=== PATIENT | female | born 1995 ===

== ENCOUNTER 2021-02-20 18:44 | Inpatient (IN) | payer BC ==
[2021-02-20] MEDS ORDERED: Terbutaline 1 MG/ML SDV SUBCUT PRN (19:20)
[2021-02-20] MEDS ORDERED: Sodium Chloride 0.9% 20 ML SDV IV PRN (19:22)
[2021-02-20] MEDS ORDERED: Misoprostol 200 MCG Tab PO PRN (19:22)
[2021-02-20] MEDS ORDERED: Sodium Chloride 0.9% 2.5 ML Syringe FLUSH PRN (19:22)
[2021-02-20] MEDS ORDERED: Lidocaine 1% 50 ML MDV INJECT PRN (19:22)
[2021-02-20] MEDS ORDERED: Sodium Chloride 0.9% 10 ML Syringe FLUSH PRN (19:22)
[2021-02-20] MEDS ORDERED: Carboprost Tromethamine 250 MCG/1 ML Amp IM PRN (19:22)
[2021-02-20] MEDS ORDERED: Methylergonovine 0.2 MG/1 ML Amp IM PRN (19:22)
[2021-02-20] MEDS ORDERED: Butorphanol 1 MG/ML SDV IVPUSH PRN (19:22)
[2021-02-20] MEDS ORDERED: Water For Irrigation,Sterile 1,000 ML Container IRR PRN (19:22)
[2021-02-20] MEDS ORDERED: Ondansetron 4 MG/2 ML SDV IVPUSH PRN (19:22)
[2021-02-20] MEDS ORDERED: Tranexamic Acid 1,000 MG in Sodium Chloride 0.9% 100 ML IV PRN (19:22)
[2021-02-20] MEDS ORDERED: Oxytocin/0.9 % Sodium Chloride 30 UNIT/500 ML BAG IV SCH ×2 (19:30)
[2021-02-20] MEDS: Misoprostol 25 MCG (1/4 of 100 MCG) Tab VAG PRN (20:55)
[2021-02-21] MEDS: Misoprostol 25 MCG (1/4 of 100 MCG) Tab VAG PRN (01:19)
[2021-02-21] MEDS: Lactated Ringers 1,000 ML IV SCH ×3 (06:10→10:25)
[2021-02-21] MEDS ORDERED: Ropivacaine HCl/PF 200 ML ONE (08:07)
--- NOTE | 2021-02-21 08:25 | PCM.PREANE ---
Preanesthetic Assessment - Anesthesia/Transfusion/Family Hx Anesthesia History: Prior Anesthesia Without Reaction Transfusion History: No Prior Transfusion(s) - Review of Systems General: No Symptoms Pulmonary: No Symptoms Cardiovascular: No Symptoms Gastrointestinal: No Symptoms Neurological: No Symptoms Other: Reports: None - Physical Assessment NPO Status Date: 02/21/21 NPO Status Time: 00:00 Height: 5 ft 4 in Weight: 199 lb ASA Class: 2 Mental Status: Alert & Oriented x3 Airway Class: Mallampati = 2 Dentition: Reports: Normal Dentition Thyro-Mental Finger Breadths: 3 Mouth Opening Finger Breadths: 3 ROM/Head Extension: Full Lungs: Clear to Auscultation, Normal Respiratory Effort Cardiovascular: Regular Rate, Regular Rhythm - Lab Values: Laboratory Last Values WBC 15.74 K/uL (4.0-11.0) H 02/20/21 20:25 RBC 4.20 M/uL (4.30-5.90) L 02/20/21 20:25 Hgb 13.1 g/dL (12.0-16.0) 02/20/21 20:25 Hct 38.9 % (36.0-46.0) 02/20/21 20:25 MCV 92.6 fL (80.0-98.0) 02/20/21 20:25 MCH 31.2 pg (27.0-32.0) 02/20/21 20:25 MCHC 33.7 g/dL (31.0-37.0) 02/20/21 20:25 RDW Std Deviation 44.3 fl (28.0-62.0) 02/20/21 20:25 RDW Coeff of Kat[place] 13 % (11.0-15.0) 02/20/21 20:25 Plt Count 322 K/uL (150-400) 02/20/21 20:25 MPV 12.20 fL (7.40-12.00) H 02/20/21 20:25 Nucleated RBC % 0.0 /100WBC 02/20/21 20:25 Nucleated RBCs # 0 K/uL 02/20/21 20:25 Blood Type O POSITIVE 02/20/21 20:25 Antibody Screen NEGATIVE 02/20/21 20:25 - Allergies Allergies/Adverse Reactions: Allergies Allergy/AdvReac Type Severity Reaction Status Date / Time latex Allergy Swelling Verified 02/20/21 19:16 orange Allergy Blisters Verified 02/20/21 21:40 pumpkin Allergy Hives Verified 02/20/21 21:40 - Acknowledgements Anesthesia Type Planned: Epidural Pt an Appropriate Candidate for the Planned Anesthesia: Yes Alternatives and Risks of Anesthesia Discussed w Pt/Guardian: Yes Pt/Guardian Understands and Agrees with Anesthesia Plan: Yes PreAnesthesia Questionnaire HEENT History: Reports: Impaired Vision Genitourinary History: Reports: Renal Calculus 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: Musculoskeletal History: Reports: Other (See Below) Other Musculoskeletal History: heel fracture; bilateral growth plate fractures Psychiatric History: Reports: Other (See Below) Other Psychiatric History: blues - Past Surgical History HEENT Surgical History: Reports: Oral Surgery Female Surgical History: Reports: None Musculoskeletal Surgical History: Reports: None - SUBSTANCE USE Tobacco Use Status *Q: Never Tobacco User Recreational Drug Use History: No - HOME MEDS Home Medications: Home Meds Acetaminophen [Tylenol Extra Strength] 1 - 2 tab PO Q4HR PRN 02/20/21 [History] Aspirin 1 tab PO DAILY 02/20/21 [History] Docusate Sodium [Colace] 1 cap PO DAILY 02/20/21 [History] Pnv No.95/Ferrous Fum/Folic AC [ Tablet] 1 tab PO DAILY 02/20/21 [His tory] - CURRENT (IN HOUSE) MEDS Current Meds: Current Medications Butorphanol Tartrate (Butorphanol 1 Mg/Ml Sdv) 1 mg IVPUSH Q1H PRN PRN Reason: Pain (severe 7-10) Carboprost Tromethamine (Carboprost Tromethamine 250 Mcg/1 Ml Amp) 250 mcg IM ASDIRECTED PRN PRN Reason: Post Hemorrhage Oxytocin/Sodium Chloride (Oxytocin 30 Unit In Ns 0.9% 500 Ml Premix) 30 unit in 500 mls @ 2 mls/hr IV TITRATE DAVID; Protocol Lactated Ringer's (Ringers, Lactated) 1,000 mls @ 150 mls/hr IV ASDIRECTED DAVID Last Admin: 02/21/21 06:10 Dose: 999 mls/hr Documented by: Tranexamic Acid 1,000 mg/ (Sodium Chloride) 110 mls @ 660 mls/hr IV ONETIME PRN PRN Reason: Bleeding Lidocaine HCl (Lidocaine 1% 50 Ml Mdv) 50 ml INJECT ONETIME PRN PRN Reason: Laceration repair Methylergonovine Maleate (Methylergonovine 0.2 Mg/1 Ml Amp) 0.2 mg IM ASDIRECTED PRN PRN Reason: Post Hemorrhage Misoprostol (Misoprostol 25 Mcg (1/4 Of 100 Mcg) Tab) 25 mcg VAG Q4H PRN PRN Reason: Cervical Ripening Last Admin: 02/21/21 01:19 Dose: 25 mcg Documented by: Misoprostol (Misoprostol 200 Mcg Tab) 200 mcg PO ONETIME PRN PRN Reason: Post Hemorrhage Nalbuphine HCl (Nalbuphine 10 Mg/1 Ml Vial) 10 mg IVPUSH Q1H PRN PRN Reason: Pain (severe 7-10) Ondansetron HCl (Ondansetron 4 Mg/2 Ml Sdv) 4 mg IVPUSH Q6H PRN PRN Reason: Nausea/Vomiting Last Admin: 02/21/21 06:22 Dose: 4 mg Documented by: Sodium Chloride (Sodium Chloride 0.9% 10 Ml Syringe) 10 ml FLUSH ASDIRECTED PRN PRN Reason: Keep Vein Open Sodium Chloride (Sodium Chloride 0.9% 2.5 Ml Syringe) 2.5 ml FLUSH ASDIRECTED PRN PRN Reason: Keep Vein Open Sodium Chloride (Sodium Chloride 0.9% 20 Ml Sdv) 10 ml IV ASDIRECTED PRN PRN Reason: IV Use Sterile Water (Water For Irrigation,Sterile 1,000 Ml Container) 1,000 ml IRR ASDIRECTED PRN PRN Reason: delivery Terbutaline Sulfate (Terbutaline 1 Mg/Ml Sdv) 0.25 mg SUBCUT ASDIRECTED PRN PRN Reason: Tacysystole Discontinued Medications Oxytocin/Sodium Chloride (Oxytocin 30 Unit In Ns 0.9% 500 Ml Premix) 30 unit in 500 mls @ 500 mls/hr IV TITRATE DAVID Ropivacaine (Naropin 0.2%) Confirm Administered Dose 200 mls @ as directed .ROUTE .STK-MED ONE Stop: 02/21/21 08:08
--- NOTE | 2021-02-21 08:26 | PCM.POSTAN ---
POST ANESTHESIA ASSESSMENT - MENTAL STATUS Mental Status: Alert, Oriented - RESPIRATORY Respiratory Status: Respiratory Rate WNL, Airway Patent, O2 Saturation Stable - CARDIOVASCULAR CV Status: Pulse Rate WNL, Blood Pressure Stable - GASTROINTESTINAL GI Status: No Symptoms - POST OP HYDRATION Hydration Status: Adequate & Stable
[2021-02-21] MEDS ORDERED: ePHEDrine 50 MG/ML SDV IVPUSH PRN ×2 (08:28)
--- NOTE | 2021-02-21 08:28 | PCM.SN.2 ---
- Pre-Procedure Checklist Attending Provider Aware: Yes Chart Reviewed: Yes Consent Signed: Yes Labs Reviewed: Yes VS/FHR Reviewed: Yes Patient Identification Confirmation Method: Reports: Chart Visual, ID Band Visual, Verbal Patient Pt an Appropriate Candidate for the Planned Anesthesia: Yes Alternatives and Risks of Anesthesia Discussed w Pt/Guardian: Yes - Procedure Procedure Start Date: 02/21/21 Procedure Start Time: 07:[address]: Reports: Blood Pressure, Heart Rate, SPO2 Functional IV: Yes Safety Measures: Reports: Patient Identified, Procedure Verified, Site Verified, Procedure Time Out Prep: Reports: Alcohol x3, Betadine x3 Local Anesthetic: Reports: Intradermal Wheal w Lidocaine 1% Regional Placement Level: Reports: L2-3 Needle: Reports: 17 g Touhy Approach: Reports: Midline Technique: Reports: GINO Glass Syringe Parasthesia: Reports: None Fluid Obtained: Reports: None Test Dose Medication: Reports: Lidocaine 1.5% w Epinephrine 1:200,000 Test Dose Response: Reports: Negative Continuous Infusion Start Time: 08:15 Continuous Infusion Medication: 0.2% Naropin Continuous Infusion Rate: 16 Continuous Infusion PCS Bolus Option: 4 Continuous Infusion Lockout Dose (cc/hr): 28 Patient Position Post Placement: Reports: Supline/ROWAN Post-procedure Pain Level: 2 VS and FHR Monitored in Unit Post Placement: Yes Procedure End Date: 02/21/21 Procedure End Time: 08:55
[2021-02-21] MEDS ORDERED: Ropivacaine 0.2% 2MG/ML 200 ML Bag EPIDUR SCH (08:30)
[2021-02-21] MEDS ORDERED: Citric Acid/Sodium Citrate Solution 30 ML Cup PO ONE (12:18)
[2021-02-21] MEDS ORDERED: Famotidine 20 MG Tab PO PRN (12:18)
[2021-02-21] MEDS ORDERED: ceFAZolin 2 GM in Premix Bag 1 BAG IV ONE (12:18)
[2021-02-21] MEDS ORDERED: Oxytocin 10 Units/1 ML SDV ONE (12:26)
[2021-02-21] MEDS ORDERED: Bupivacaine 0.5% 10 ML SDV ONE ×2 (12:26→12:42)
[2021-02-21] MEDS ORDERED: fentaNYL 100 MCG/2 ML SDV ONE (12:26)
[2021-02-21] MEDS ORDERED: Dexamethasone 4 MG/ML 5 ML MDV ONE ×2 (12:26→13:21)
[2021-02-21] MEDS ORDERED: Ondansetron 4 MG/2 ML SDV IVPUSH ONE (12:26)
[2021-02-21] MEDS ORDERED: Lactated Ringers 1,000 ML IV SCH ×2 (12:30→13:45)
[2021-02-21] MEDS ORDERED: ceFAZolin 1 GM Vial ONE (12:37)
[2021-02-21] MEDS ORDERED: Ropivacaine 0.5% 5 MG/ML 30 ML SDV ONE (13:02)
[2021-02-21] MEDS ORDERED: Morphine PF 10 MG/10 ML SDV ONE (13:14)
[2021-02-21] MEDS ORDERED: Bisacodyl 10 MG Supp RECTAL PRN (13:35)
[2021-02-21] MEDS ORDERED: Acetaminophen/oxyCODONE 325-5 MG Tab PO PRN ×3 (13:35→13:46)
[2021-02-21] MEDS ORDERED: Lanolin 100% Cream 7 GM Tube TOP PRN (13:35)
[2021-02-21] MEDS ORDERED: diphenhydrAMINE 50 MG/ML SDV IVPUSH PRN ×2 (13:35→13:46)
[2021-02-21] MEDS ORDERED: Ondansetron 4 MG/2 ML SDV IVPUSH PRN ×3 (13:35→13:46)
--- NOTE | 2021-02-21 13:44 | PCM48HPAN ---
Post Anesthesia Note - EVALUATION WITHIN 48HRS OF ANESTHETIC Vital Signs in Normal Range: Yes Patient Participated in Evaluation: Yes Respiratory Function Stable: Yes Airway Patent: Yes Cardiovascular Function Stable: Yes Hydration Status Stable: Yes Pain Control Satisfactory: Yes Nausea and Vomiting Control Satisfactory: Yes Mental Status Recovered: Yes
[2021-02-21] MEDS ORDERED: Oxytocin/Lactated Ringers 30 UNIT/500 ML BAG IV SCH (13:45)
[2021-02-21] MEDS ORDERED: Fluconazole 150 MG Tab PO ONE ×2 (13:46→22:00)
[2021-02-21] MEDS ORDERED: Metoclopramide 10 MG/2 ML SDV IVPUSH PRN (13:46)
[2021-02-21] MEDS ORDERED: Morphine 2 MG/ML SYRINGE IVPUSH PRN (13:46)
[2021-02-21] MEDS ORDERED: HYDROmorphone 1 MG/ML Syringe IVPUSH PRN (13:46)
[2021-02-21] MEDS ORDERED: fentaNYL 100 MCG/2 ML SDV IVPUSH PRN ×2 (13:46)
[2021-02-21] MEDS ORDERED: Nalbuphine 10 MG/1 ML Vial IVPUSH PRN (13:46)
[2021-02-21] MEDS ORDERED: Albuterol 0.083% 2.5 MG/3 ML Neb Soln NEB PRN (13:46)
[2021-02-21] MEDS ORDERED: Naloxone 0.4 MG/ML SDV IVPUSH PRN (13:46)
--- NOTE | 2021-02-21 13:46 | PCM.SN.2 ---
- Free Text/Narrative Note: Anesthesia Start: 1341 Anesthesia Stop: 1345 At conclusion of case , following a block time out and patient consent, US was used to place bilateral TAPS blocks with 15cc per side of 0.5% Naropin. A 21g, 6 inch stimuplex needle was used. No complications Abhishek Le MD
--- NOTE | 2021-02-21 13:46 | PCM.OPNOTE ---
- General Post-Op/Procedure Note Date of Surgery/Procedure: 02/21/21 Operative Procedure(s): Primary low transverse section Findings: Live male infant, nuchal x1, thick meconium, Apgars 8/9, weight 2670g Placenta intact, 3-vessel cord Normal-appearing uterus, ovaries, fallopian tubes Pre Op Diagnosis: 25yo @ 38w0d. Induction of labor for intrauterine growth restriction with elevated umbilical artery dopplers. Chronic hypertension. intolerance of labor Post-Op Diagnosis: Same Anesthesia Technique: Epidural, Local Primary Surgeon: Veronica Roque Anesthesia Provider: Abhishek Le Pathology: Placenta Cord blood Cord gases Fluid Replacement, Intraop: 1,500 Output, Urine Amount: 100 EBL in mLs: 450 Complications: None Condition: Good Free Text/Narrative:: Intake & Output 02/20/21 02/21/21 02/21/21 22:59 06:59 14:59 Intake Total 1999 Balance 1999 2g Ancef IV given prior to procedure
--- NOTE | 2021-02-21 20:38 | OR ---
SURGEON: Veronica Roque MD DATE OF PROCEDURE: 02/21/2021 PREOPERATIVE DIAGNOSES: 1. 25-year-old, G1, P0, at 38 weeks and 0 day's gestation. 2. Induction of labor for intrauterine growth restriction with elevated umbilical artery Dopplers. 3. Maternal chronic hypertension. 4. Group B streptococcus negative. 5. intolerance of labor. POSTOPERATIVE DIAGNOSES: 1. 25-year-old, G1, P0, at 38 weeks and 0 day's gestation. 2. Induction of labor for intrauterine growth restriction with elevated umbilical artery Dopplers. 3. Maternal chronic hypertension. 4. Group B streptococcus negative. 5. intolerance of labor. PROCEDURE: Primary low-transverse section. PRIMARY SURGEON: Veronica Roque MD ANESTHESIA: Epidural by Dr. Le. IV FLUIDS: 1500 mL LR. ESTIMATED BLOOD LOSS: 250 mL. URINE OUTPUT: 100 mL. ANTIBIOTIC PROPHYLAXIS: 2 g of Ancef. FINDINGS: Live male in cephalic presentation. scores of 8 and 9 at one and five minutes respectively. Weight 2670 g. Nuchal cord x1. Thick meconium fluid. Placenta intact with three-vessel cord. Normal-appearing uterus, bilateral fallopian tubes, and ovaries. DESCRIPTION OF PROCEDURE: This is a 25-year-old, G1, P0, who presented at 37 weeks and 6 days' gestation for induction of labor. On routine ultrasound for intrauterine growth restriction, elevated umbilical cord Dopplers were noted. Plan was to induce labor. Upon presentation, patient's cervix was found to be 1 cm dilated. She received two doses of Cytotec for cervical ripening. At this time, the patient began having intermittent recurrent variable decelerations with certain maternal positions. It would recover with placement of the patient in high White position. After reassuring heart tracing resumed, Pitocin was started for induction of labor. Pitocin reached 2 milliunits per minute and recurrent variable decelerations were again noted. I discussed with the patient attempt at artificial rupture of membranes with concern that baby would not tolerate further induction of labor versus proceeding with primary delivery. At this time, she desired to proceed with primary delivery for intolerance to labor. Risks and benefits of the procedure were reviewed with the patient. The patient taken was taken to the operating room where epidural anesthesia was found to be adequate. She was placed in dorsal supine position with a leftward tilt. She was prepared and draped in normal sterile fashion. A Pfannenstiel skin incision was made with a scalpel and carried through to the underlying layer of fascia with the Bovie. Fascia was incised in the midline and the incision extended laterally with curved Olvera scissors. The superior aspect of the fascial incision was grasped with Mitch clamps, elevated, and underlying rectus muscle was dissected off bluntly and with Bovie. In a similar fashion, the inferior aspect of the fascial incision was grasped with Mitch clamps, elevated, and the underlying rectus muscle was dissected off bluntly and with Bovie. The peritoneum was identified in the midline and entered bluntly. Peritoneal incision was extended using manual traction. A large Alexander retractor was placed. A bladder flap was created in the usual fashion. A low uterine hysterotomy was created with a scalpel. The incision was extended using manual traction. Artificial rupture of membranes occurred with thick meconium fluid noted. The head was brought to the hysterotomy and delivered, followed quickly by the shoulders and the remainder of the body. Nuchal cord x1 was reduced after delivery of the body. The cord was quickly clamped and cut, and the handed off to the awaiting carpenter's helper, respiratory therapist, and nurse. Cord blood and cord gases were obtained. The placenta was then delivered intact with three-vessel cord using manual traction and uterine massage. The uterus was cleared of all clots and debris. Hysterotomy was repaired with a running lock stitch of 0 Vicryl suture. A second stitch of the same suture was used to obtain hemostasis. 3-0 Vicryl suture was used to obtain hemostasis in area of bleeding in the lower uterine segment. The uterus was returned to the abdomen, and the gutters were cleared of all clots. The incision was inspected and noted to be hemostatic. The Alexander retractor was removed. The fascial incision was closed with a running stitch of 0 Vicryl suture. Subcutaneous tissue was closed with a running stitch of 3-0 Vicryl suture. Skin was closed with 4-0 Monocryl in a subcuticular fashion. All sponge, lap, and needle counts were correct x3. The patient and tolerated the delivery well. [id number] / MODL /[id number] [facility]
[2021-02-21] MEDS: Ketorolac 30 MG/ML SDV IVPUSH SCH ×3 (20:59→21:03)
[2021-02-21] MEDS: Docusate Sodium 100 MG Cap PO SCH (21:01)
[2021-02-21] MEDS: Sertraline 50 MG Tab PO SCH (22:00)
[2021-02-22] MEDS: Ketorolac 30 MG/ML SDV IVPUSH SCH ×3 (03:20→09:21)
--- NOTE | 2021-02-22 07:19 | PCM.PNPP ---
- General Info Date of Service: 02/22/21 Subjective Update: Patient doing well this morning. Pain well controlled. Mejia catheter about to be removed. Minimal bleeding. Tolerating oral intake without nausea. going well. Functional Status: Reports: Pain Controlled, Tolerating Diet, Ambulating, Urinating - Review of Systems General: Reports: No Symptoms HEENT: Reports: No Symptoms Pulmonary: Reports: No Symptoms Cardiovascular: Reports: No Symptoms Gastrointestinal: Reports: No Symptoms Genitourinary: Reports: No Symptoms Musculoskeletal: Reports: No Symptoms Skin: Reports: No Symptoms Neurological: Reports: No Symptoms Psychiatric: Reports: No Symptoms - Patient Data Vital Signs - Most Recent: Last Vital Signs Temp 36.6 C 02/21/21 13:35 Pulse 68 02/21/21 14:10 Resp 16 02/21/21 14:10 BP 113/72 02/21/21 14:10 Pulse Ox 99 02/21/21 14:10 Weight - Most Recent: 90.265 kg Lab Results - Last 24 Hours: Laboratory Results - last 24 hr 02/21/21 02/22/21 Range/Units 13:01 05:29 Hgb 10.3 L (12.0-16.0) g/dL Hct 31.3 L (36.0-46.0) % Cord ABG pH 7.141 L (7.18-7.38) Cord ABG Base Excess -7 (-10--2) Cord VBG pH 7.169 L (7.25-7.45) Cord VBG Base Excess -7 (-10--2) Med Orders - Current: Current Medications Bisacodyl (Bisacodyl 10 Mg Supp) 10 mg RECTAL ONETIME PRN PRN Reason: Constipation Butorphanol Tartrate (Butorphanol 1 Mg/Ml Sdv) 1 mg IVPUSH Q1H PRN PRN Reason: Pain (severe 7-10) Carboprost Tromethamine (Carboprost Tromethamine 250 Mcg/1 Ml Amp) 250 mcg IM ASDIRECTED PRN PRN Reason: Post Hemorrhage Diphenhydramine HCl (Diphenhydramine 50 Mg/Ml Sdv) 25 mg IVPUSH Q6H PRN PRN Reason: Itching or Nausea Docusate Sodium (Docusate Sodium 100 Mg Cap) 100 mg PO BID DAVID Last Admin: 02/21/21 21:01 Dose: 100 mg Documented by: Emollient Ointment (Lanolin 100% Cream 7 Gm Tube) 0 gm TOP ASDIRECTED PRN PRN Reason: Sore Nipples Famotidine (Famotidine 20 Mg Tab) 20 mg PO Q12H PRN PRN Reason: Heartburn Oxytocin/Sodium Chloride (Oxytocin 30 Unit In Ns 0.9% 500 Ml Premix) 30 unit in 500 mls @ 2 mls/hr IV TITRATE [facility]; Protocol Last Titration: 02/21/21 11:12 Dose: 0 munits/min, 0 mls/hr Documented by: Lactated Ringer's (Ringers, Lactated) 1,000 mls @ 150 mls/hr IV ASDIRECTED [facility] Last Admin: 02/21/21 10:25 Dose: 150 mls/hr Documented by: Tranexamic Acid 1,000 mg/ (Sodium Chloride) 110 mls @ 660 mls/hr IV ONETIME PRN PRN Reason: Bleeding Lactated Ringer's (Ringers, Lactated) 1,000 mls @ 500 mls/hr IV BOLUS DAVID Lactated Ringer's (Ringers, Lactated) 1,000 mls @ 125 mls/hr IV ASDIRECTED [facility] Last Admin: 02/21/21 20:02 Dose: 125 mls/hr Documented by: Oxytocin/Lactated Ringer's (Pitocin In Lr 30 Units/500 Ml) 30 unit in 500 mls @ 999 mls/hr IV TITRATE DAVID Ibuprofen (Ibuprofen 800 Mg Tab) 800 mg PO Q8H PRN PRN Reason: Cramping Ketorolac Tromethamine (Ketorolac 30 Mg/Ml Sdv) 30 mg IVPUSH Q6H [facility] Stop: 02/22/21 13:46 Last Admin: 02/22/21 03:20 Dose: 30 mg Documented by: Lidocaine HCl (Lidocaine 1% 50 Ml Mdv) 50 ml INJECT ONETIME PRN PRN Reason: Laceration repair Methylergonovine Maleate (Methylergonovine 0.2 Mg/1 Ml Amp) 0.2 mg IM ASDIRECTED PRN PRN Reason: Post Hemorrhage Misoprostol (Misoprostol 25 Mcg (1/4 Of 100 Mcg) Tab) 25 mcg VAG Q4H PRN PRN Reason: Cervical Ripening Last Admin: 02/21/21 01:19 Dose: 25 mcg Documented by: Misoprostol (Misoprostol 200 Mcg Tab) 200 mcg PO ONETIME PRN PRN Reason: Post Hemorrhage Nalbuphine HCl (Nalbuphine 10 Mg/1 Ml Vial) 10 mg IVPUSH Q1H PRN PRN Reason: Pain (severe 7-10) Ondansetron HCl (Ondansetron 4 Mg/2 Ml Sdv) 4 mg IVPUSH Q6H PRN PRN Reason: Nausea/Vomiting Last Admin: 02/21/21 06:22 Dose: 4 mg Documented by: Ondansetron HCl (Ondansetron 4 Mg/2 Ml Sdv) 4 mg IVPUSH Q4H PRN PRN Reason: Nausea/Vomiting Oxycodone/Acetaminophen (Acetaminophen/Oxycodone 325-5 Mg Tab) 1 tab PO Q4H PRN PRN Reason: Pain (severe 7-10) Oxycodone/Acetaminophen (Acetaminophen/Oxycodone 325-5 Mg Tab) 2 tab PO Q4H PRN PRN Reason: Pain (severe 7-10) Sertraline HCl (Sertraline 50 Mg Tab) 50 mg PO DAILY DAVID Sodium Chloride (Sodium Chloride 0.9% 10 Ml Syringe) 10 ml FLUSH ASDIRECTED PRN PRN Reason: Keep Vein Open Sodium Chloride (Sodium Chloride 0.9% 2.5 Ml Syringe) 2.5 ml FLUSH ASDIRECTED PRN PRN Reason: Keep Vein Open Sodium Chloride (Sodium Chloride 0.9% 20 Ml Sdv) 10 ml IV ASDIRECTED PRN PRN Reason: IV Use Sterile Water (Water For Irrigation,Sterile 1,000 Ml Container) 1,000 ml IRR ASDIRECTED PRN PRN Reason: delivery Terbutaline Sulfate (Terbutaline 1 Mg/Ml Sdv) 0.25 mg SUBCUT ASDIRECTED PRN PRN Reason: Tacysystole Discontinued Medications Albuterol (Albuterol 0.083% 2.5 Mg/3 Ml Neb Soln) 2.5 mg NEB ONETIME PRN PRN Reason: Wheezing Bupivacaine HCl (Bupivacaine 0.5% 10 Ml Sdv) Confirm Administered Dose 10 ml .ROUTE .STK-MED ONE Stop: 02/21/21 12:43 Citric Acid/Sodium Citrate (Citric Acid/Sodium Citrate Solution 30 Ml Cup) 30 ml PO ONETIME ONE Stop: 02/21/21 12:19 Diphenhydramine HCl (Diphenhydramine 50 Mg/Ml Sdv) 12.5 mg IVPUSH Q2H PRN PRN Reason: Itching Droperidol (Droperidol 5 Mg/2 Ml Sdv) 0.625 mg IVPUSH ONETIME PRN PRN Reason: Nausea/Vomiting Ephedrine Sulfate (Ephedrine 50 Mg/Ml Sdv) 10 mg IVPUSH Q5M PRN PRN Reason: Hypotension Ephedrine Sulfate (Ephedrine 50 Mg/Ml Sdv) 10 mg IVPUSH Q1M PRN PRN Reason: Hypotension Fentanyl (Fentanyl 100 Mcg/2 Ml Sdv) 50 mcg IVPUSH Q15M PRN PRN Reason: Pain (severe 7-10) Fentanyl (Fentanyl 100 Mcg/2 Ml Sdv) 50 mcg IVPUSH Q5M PRN PRN Reason: Pain (mild 1-3) Fluconazole (Fluconazole 150 Mg Tab) 150 mg PO ONETIME ONE Stop: 02/21/21 13:47 Last Admin: 02/22/21 03:47 Dose: 150 mg Documented by: Fluconazole (Fluconazole 150 Mg Tab) 150 mg PO ONETIME ONE Stop: 02/21/21 22:01 Last Admin: 02/21/21 23:01 Dose: 150 mg Documented by: Hydromorphone HCl (Hydromorphone 1 Mg/Ml Syringe) 1 mg IVPUSH Q10M PRN PRN Reason: Pain (moderate 4-6) Oxytocin/Sodium Chloride (Oxytocin 30 Unit In Ns 0.9% 500 Ml Premix) 30 unit in 500 mls @ 500 mls/hr IV TITRATE DAVID Ropivacaine (Naropin 0.2%) Confirm Administered Dose 200 mls @ as directed .ROUTE .STK-MED ONE Stop: 02/21/21 08:08 Cefazolin Sodium/Dextrose 2 gm (/ Premix) 50 mls @ 100 mls/hr IV ONETIME ONE Stop: 02/21/21 12:47 Metoclopramide HCl (Metoclopramide 10 Mg/2 Ml Sdv) 10 mg IVPUSH ONETIME PRN PRN Reason: Nausea/Vomiting Miscellaneous Medication (Phenylephrine Hcl In 0.9% Nacl 1 Mg/10 Ml Syringe) 0.1 mg IVPUSH Q1M PRN PRN Reason: Hypotension Morphine Sulfate (Morphine 2 Mg/Ml Syringe) 2 mg IVPUSH Q10M PRN PRN Reason: Pain (severe 7-10) Nalbuphine HCl (Nalbuphine 10 Mg/1 Ml Vial) 5 mg IVPUSH Q30M PRN PRN Reason: Itching Naloxone HCl (Naloxone 0.4 Mg/Ml Sdv) 0.1 mg IVPUSH ASDIRECTED PRN PRN Reason: Respiratory Depression Ondansetron HCl (Ondansetron 4 Mg/2 Ml Sdv) 4 mg IVPUSH Q6H PRN PRN Reason: Nausea Ondansetron HCl (Ondansetron 4 Mg/2 Ml Sdv) 4 mg IVPUSH ONETIME PRN PRN Reason: Nausea/Vomiting Oxycodone/Acetaminophen (Acetaminophen/Oxycodone 325-5 Mg Tab) 2 tab PO Q6H PRN PRN Reason: Pain (moderate 4-6) Ropivacaine (Ropivacaine 0.2% 2mg/Ml 200 Ml Bag) 400 mg EPIDUR ASDIRECTED DAVID - Interaction Disposition, : [place] in Room with Family Interaction: Holding Feeding: Breastfed Infant; Nursed Well Support Person: - Recovery Exam Fundal Tone: Firm Fundal Level: 2 Fingerbreadths Below Umbilicus Fundal Placement: Midline Lochia Amount: Scant Lochia Color: Rubra/Red Urinary Elimination: Other (see below) (catheter currently being removed) - Exam General: Alert, Oriented Neck: Supple Lungs: Normal Respiratory Effort GI/Abdominal Exam: Soft, Non-Tender, No Distention Extremities: Non-Tender, No Pedal Edema Skin: Warm, Dry, Intact Wound/Incisions: Dressing Dry and Intact Neurological: No New Focal Deficit Psy/Mental Status: Alert, Normal Affect, Normal Mood - Problem List & Annotations (1) S/P primary low transverse SNOMED Code(s): 309047275, 52679711, 110796355, 756156408, 920845809 Code(s): Z98.891 - HISTORY OF UTERINE SCAR FROM PREVIOUS SURGERY Status: Acute Current Visit: Yes (2) Chronic hypertension affecting SNOMED Code(s): 61462152 Code(s): O10.919 - UNSP PRE-EXISTING HTN COMP , UNSP TRIMESTER Status: Acute Current Visit: Yes - Problem List Review Problem List Initiated/Reviewed/Updated: Yes - My Orders Last 24 Hours: My Active Orders 02/21/21 12:18 Famotidine [Pepcid] 20 mg PO Q12H PRN 02/21/21 12:19 Antiembolic Devices [RC] PER UNIT ROUTINE Procedure Site Prep Instruct [RC] ASDIRECTED Verify Patient Consent Obtain [RC] ASDIRECTED Schedule Procedure [COMM] Per Unit Routine Sequential Compression Device [OM.PC] Routine 02/21/21 12:30 Lactated Ringers [Ringers, Lactated] 1,000 ml IV BOLUS 02/21/21 13:35 Intake and Output [RC] QSHIFT Notify Provider Intake and Out [RC] ASDIRECTED Notify Provider Vital Signs [RC] ASDIRECTED Urinary Catheter Removal [RC] PER UNIT ROUTINE Acetaminophen/oxyCODONE [Percocet 325-5 MG] 1 tab PO Q4H PRN Acetaminophen/oxyCODONE [Percocet 325-5 MG] 2 tab PO Q4H PRN Lanolin [Lansinoh HPA] See Dose Instructions TOP ASDIRECTED PRN Ondansetron [Zofran] 4 mg IVPUSH Q4H PRN bisacodyL [Dulcolax] 10 mg RECTAL ONETIME PRN diphenhydrAMINE [Benadryl] 25 mg IVPUSH Q6H PRN Abdominal Binder [OM.PC] Routine DVT/VTE Prophylaxis Reflex [OM.PC] Routine Heat Therapy [OM.PC] Routine Ice Therapy [OM.PC] Routine 02/21/21 13:36 Patient Status [ADT] Routine Ambulate [RC] PER UNIT ROUTINE Antiembolic Devices [RC] PER UNIT ROUTINE Communication Order [RC] PER UNIT ROUTINE Communication Order [RC] PER UNIT ROUTINE Communication Order [RC] Per Unit Routine May Shower [RC] ASDIRECTED RT Incentive Spirometry [RC] Q2HWA Vital Signs [RC] PER UNIT ROUTINE Assess Lochia [WOMSER] Per Unit Routine Assess Uterine Involution [WOMSER] Per Unit Routine Breast Pump [WOMSER] Per Unit Routine Peripheral IV Discontinue [OM.PC] Routine Sequential Compression Device [OM.PC] Per Unit Routine 02/21/21 13:37 Cooling Warming Measures [RC] ASDIRECTED 02/21/21 13:38 Antiembolic Devices [RC] .Routine VTE/DVT Education [RC] PER UNIT ROUTINE 02/21/21 13:45 Ketorolac [Toradol] 30 mg IVPUSH Q6H Lactated Ringers [Ringers, Lactated] 1,000 ml IV ASDIRECTED Oxytocin/Lactated Ringers [Pitocin in LR 30 Units/500 ML] 30 unit in 500 ml IV TITRATE 02/21/21 14:00 Sertraline [Zoloft] 50 mg PO DAILY 02/21/21 Dinner Regular Diet [DIET] 02/21/21 21:00 Docusate Sodium [Colace] 100 mg PO BID 02/22/21 19:45 Ibuprofen [Motrin] 800 mg PO Q8H PRN - Assessment Assessment:: 25yo s/p 1LTCS at 38w0d for intolerance of labor, POD#1 - Plan Plan:: Continue routine cares. Rh positive, Rubella immune, GBS negative. Encourage ambulation today. Plan discharge home tomorrow.
[2021-02-22] MEDS: Sertraline 50 MG Tab PO SCH (09:22)
[2021-02-22] MEDS: Docusate Sodium 100 MG Cap PO SCH ×2 (09:22→20:35)
[2021-02-22] MEDS: Nalbuphine 10 MG/1 ML Vial IVPUSH PRN ×2 (11:53→17:39)
[2021-02-23] MEDS: Ibuprofen 800 MG Tab PO PRN ×2 (01:34→09:44)
[2021-02-23] MEDS: Docusate Sodium 100 MG Cap PO SCH (09:10)
[2021-02-23] MEDS: Sertraline 50 MG Tab PO SCH (09:10)
--- NOTE | 2021-02-23 11:15 | PCM.PNPP ---
- General Info Date of Service: 02/23/21 Subjective Update: Patient doing well this morning. Pain well controlled.Urination. Minimal bleeding. Tolerating oral intake without nausea. going well. Functional Status: Reports: Pain Controlled, Tolerating Diet, Ambulating, Urinating - Review of Systems General: Reports: No Symptoms HEENT: Reports: No Symptoms Pulmonary: Reports: No Symptoms Cardiovascular: Reports: No Symptoms Gastrointestinal: Reports: No Symptoms Genitourinary: Reports: No Symptoms Musculoskeletal: Reports: No Symptoms Skin: Reports: No Symptoms Neurological: Reports: No Symptoms Psychiatric: Reports: No Symptoms - General Info Date of Service: 02/23/21 - Patient Data Vital Signs - Most Recent: Last Vital Signs Temp 36.9 C 02/23/21 07:00 Pulse 67 02/23/21 07:00 Resp 18 02/23/21 07:00 BP 129/69 02/23/21 07:00 Pulse Ox 98 02/23/21 07:00 Weight - Most Recent: 90.265 kg I&O - Last 24 Hours: Intake & Output 02/22/21 02/23/21 02/23/21 22:59 06:59 14:59 Output Total 900 Balance -900 Med Orders - Current: Current Medications Bisacodyl (Bisacodyl 10 Mg Supp) 10 mg RECTAL ONETIME PRN PRN Reason: Constipation Butorphanol Tartrate (Butorphanol 1 Mg/Ml Sdv) 1 mg IVPUSH Q1H PRN PRN Reason: Pain (severe 7-10) Carboprost Tromethamine (Carboprost Tromethamine 250 Mcg/1 Ml Amp) 250 mcg IM ASDIRECTED PRN PRN Reason: Post Hemorrhage Diphenhydramine HCl (Diphenhydramine 50 Mg/Ml Sdv) 25 mg IVPUSH Q6H PRN PRN Reason: Itching or Nausea Docusate Sodium (Docusate Sodium 100 Mg Cap) 100 mg PO BID DAVID Last Admin: 02/23/21 09:10 Dose: 100 mg Documented by: Emollient Ointment (Lanolin 100% Cream 7 Gm Tube) 0 gm TOP ASDIRECTED PRN PRN Reason: Sore Nipples Last Admin: 02/22/21 07:33 Dose: 7 gm Documented by: Famotidine (Famotidine 20 Mg Tab) 20 mg PO Q12H PRN PRN Reason: Heartburn Oxytocin/Sodium Chloride (Oxytocin 30 Unit In Ns 0.9% 500 Ml Premix) 30 unit in 500 mls @ 2 mls/hr IV TITRATE [facility]; Protocol Last Titration: 02/21/21 11:12 Dose: 0 munits/min, 0 mls/hr Documented by: Lactated Ringer's (Ringers, Lactated) 1,000 mls @ 150 mls/hr IV ASDIRECTED [facility] Last Admin: 02/21/21 10:25 Dose: 150 mls/hr Documented by: Tranexamic Acid 1,000 mg/ (Sodium Chloride) 110 mls @ 660 mls/hr IV ONETIME PRN PRN Reason: Bleeding Lactated Ringer's (Ringers, Lactated) 1,000 mls @ 500 mls/hr IV BOLUS DAVID Lactated Ringer's (Ringers, Lactated) 1,000 mls @ 125 mls/hr IV ASDIRECTED [facility] Last Admin: 02/21/21 20:02 Dose: 125 mls/hr Documented by: Oxytocin/Lactated Ringer's (Pitocin In Lr 30 Units/500 Ml) 30 unit in 500 mls @ 999 mls/hr IV TITRATE DAVID Ibuprofen (Ibuprofen 800 Mg Tab) 800 mg PO Q8H PRN PRN Reason: Cramping Last Admin: 02/23/21 09:44 Dose: 800 mg Documented by: Lidocaine HCl (Lidocaine 1% 50 Ml Mdv) 50 ml INJECT ONETIME PRN PRN Reason: Laceration repair Methylergonovine Maleate (Methylergonovine 0.2 Mg/1 Ml Amp) 0.2 mg IM ASDIRECTED PRN PRN Reason: Post Hemorrhage Misoprostol (Misoprostol 25 Mcg (1/4 Of 100 Mcg) Tab) 25 mcg VAG Q4H PRN PRN Reason: Cervical Ripening Last Admin: 02/21/21 01:19 Dose: 25 mcg Documented by: Misoprostol (Misoprostol 200 Mcg Tab) 200 mcg PO ONETIME PRN PRN Reason: Post Hemorrhage Nalbuphine HCl (Nalbuphine 10 Mg/1 Ml Vial) 10 mg IVPUSH Q1H PRN PRN Reason: Pain (severe 7-10) Last Admin: 02/22/21 17:39 Dose: 10 mg Documented by: Ondansetron HCl (Ondansetron 4 Mg/2 Ml Sdv) 4 mg IVPUSH Q6H PRN PRN Reason: Nausea/Vomiting Last Admin: 02/21/21 06:22 Dose: 4 mg Documented by: Ondansetron HCl (Ondansetron 4 Mg/2 Ml Sdv) 4 mg IVPUSH Q4H PRN PRN Reason: Nausea/Vomiting Oxycodone/Acetaminophen (Acetaminophen/Oxycodone 325-5 Mg Tab) 1 tab PO Q4H PRN PRN Reason: Pain (severe 7-10) Oxycodone/Acetaminophen (Acetaminophen/Oxycodone 325-5 Mg Tab) 2 tab PO Q4H PRN PRN Reason: Pain (severe 7-10) Last Admin: 02/22/21 17:38 Dose: 2 tab Documented by: Sertraline HCl (Sertraline 50 Mg Tab) 50 mg PO DAILY DAVID Last Admin: 02/23/21 09:10 Dose: 50 mg Documented by: Sodium Chloride (Sodium Chloride 0.9% 10 Ml Syringe) 10 ml FLUSH ASDIRECTED PRN PRN Reason: Keep Vein Open Sodium Chloride (Sodium Chloride 0.9% 2.5 Ml Syringe) 2.5 ml FLUSH ASDIRECTED PRN PRN Reason: Keep Vein Open Sodium Chloride (Sodium Chloride 0.9% 20 Ml Sdv) 10 ml IV ASDIRECTED PRN PRN Reason: IV Use Sterile Water (Water For Irrigation,Sterile 1,000 Ml Container) 1,000 ml IRR ASDIRECTED PRN PRN Reason: delivery Terbutaline Sulfate (Terbutaline 1 Mg/Ml Sdv) 0.25 mg SUBCUT ASDIRECTED PRN PRN Reason: Tacysystole Discontinued Medications Albuterol (Albuterol 0.083% 2.5 Mg/3 Ml Neb Soln) 2.5 mg NEB ONETIME PRN PRN Reason: Wheezing Bupivacaine HCl (Bupivacaine 0.5% 10 Ml Sdv) Confirm Administered Dose 10 ml .ROUTE .STK-MED ONE Stop: 02/21/21 12:43 Last Admin: 02/23/21 08:10 Dose: Not Given Documented by: Citric Acid/Sodium Citrate (Citric Acid/Sodium Citrate Solution 30 Ml Cup) 30 ml PO ONETIME ONE Stop: 02/21/21 12:19 Diphenhydramine HCl (Diphenhydramine 50 Mg/Ml Sdv) 12.5 mg IVPUSH Q2H PRN PRN Reason: Itching Droperidol (Droperidol 5 Mg/2 Ml Sdv) 0.625 mg IVPUSH ONETIME PRN PRN Reason: Nausea/Vomiting Ephedrine Sulfate (Ephedrine 50 Mg/Ml Sdv) 10 mg IVPUSH Q5M PRN PRN Reason: Hypotension Ephedrine Sulfate (Ephedrine 50 Mg/Ml Sdv) 10 mg IVPUSH Q1M PRN PRN Reason: Hypotension Fentanyl (Fentanyl 100 Mcg/2 Ml Sdv) 50 mcg IVPUSH Q15M PRN PRN Reason: Pain (severe 7-10) Fentanyl (Fentanyl 100 Mcg/2 Ml Sdv) 50 mcg IVPUSH Q5M PRN PRN Reason: Pain (mild 1-3) Fluconazole (Fluconazole 150 Mg Tab) 150 mg PO ONETIME ONE Stop: 02/21/21 13:47 Last Admin: 02/22/21 03:47 Dose: 150 mg Documented by: Fluconazole (Fluconazole 150 Mg Tab) 150 mg PO ONETIME ONE Stop: 02/21/21 22:01 Last Admin: 02/21/21 23:01 Dose: 150 mg Documented by: Hydromorphone HCl (Hydromorphone 1 Mg/Ml Syringe) 1 mg IVPUSH Q10M PRN PRN Reason: Pain (moderate 4-6) Oxytocin/Sodium Chloride (Oxytocin 30 Unit In Ns 0.9% 500 Ml Premix) 30 unit in 500 mls @ 500 mls/hr IV TITRATE [facility] Ropivacaine (Naropin 0.2%) Confirm Administered Dose 200 mls @ as directed .ROUTE .STK-MED ONE Stop: 02/21/21 08:08 Cefazolin Sodium/Dextrose 2 gm (/ Premix) 50 mls @ 100 mls/hr IV ONETIME ONE Stop: 02/21/21 12:47 Last Admin: 02/23/21 08:09 Dose: Not Given Documented by: Ketorolac Tromethamine (Ketorolac 30 Mg/Ml Sdv) 30 mg IVPUSH Q6H [facility] Stop: 02/22/21 13:46 Last Admin: 02/22/21 09:21 Dose: 30 mg Documented by: Metoclopramide HCl (Metoclopramide 10 Mg/2 Ml Sdv) 10 mg IVPUSH ONETIME PRN PRN Reason: Nausea/Vomiting Miscellaneous Medication (Phenylephrine Hcl In 0.9% Nacl 1 Mg/10 Ml Syringe) 0.1 mg IVPUSH Q1M PRN PRN Reason: Hypotension Morphine Sulfate (Morphine 2 Mg/Ml Syringe) 2 mg IVPUSH Q10M PRN PRN Reason: Pain (severe 7-10) Nalbuphine HCl (Nalbuphine 10 Mg/1 Ml Vial) 5 mg IVPUSH Q30M PRN PRN Reason: Itching Naloxone HCl (Naloxone 0.4 Mg/Ml Sdv) 0.1 mg IVPUSH ASDIRECTED PRN PRN Reason: Respiratory Depression Ondansetron HCl (Ondansetron 4 Mg/2 Ml Sdv) 4 mg IVPUSH Q6H PRN PRN Reason: Nausea Ondansetron HCl (Ondansetron 4 Mg/2 Ml Sdv) 4 mg IVPUSH ONETIME PRN PRN Reason: Nausea/Vomiting Oxycodone/Acetaminophen (Acetaminophen/Oxycodone 325-5 Mg Tab) 2 tab PO Q6H PRN PRN Reason: Pain (moderate 4-6) Ropivacaine (Ropivacaine 0.2% 2mg/Ml 200 Ml Bag) 400 mg EPIDUR ASDIRECTED DAVID - Interaction Infant Disposition, : [place] in Room with Family Infant Interaction: Holding Infant Feeding: Breastfed ; Nursed Well Support Person: - Recovery Exam Fundal Tone: Firm Fundal Level: 1 Fingerbreadths Below Umbilicus Fundal Placement: Midline Lochia Amount: Scant Lochia Color: Rubra/Red Perineum Description: Intact, Minimal Bruising/Swelling Episiotomy/Laceration: None Bladder Status: Voiding Urinary Elimination: Other (see below) (catheter currently being removed) - Exam General: Alert HEENT: Pupils Equal Neck: Supple Lungs: Clear to Auscultation, Normal Respiratory Effort Cardiovascular: Regular Rate, Regular Rhythm GI/Abdominal Exam: Normal Bowel Sounds Extremities: Normal Inspection Wound/Incisions: Dressing Dry and Intact Neurological: No New Focal Deficit Psy/Mental Status: Alert - Problem List & Annotations (1) S/P primary low transverse SNOMED Code(s): 289082591, [id number], [id number], [id number], [id number] Code(s): Z98.891 - HISTORY OF UTERINE SCAR FROM PREVIOUS SURGERY Status: Acute Current Visit: Yes - Problem List Review Problem List Initiated/Reviewed/Updated: Yes - Assessment Assessment:: 25yo s/p 1LTCS at 38w0d for intolerance of labor, POD#2 - Plan Plan:: Continue routine cares. Rh positive, Rubella immune, GBS negative. Encourage ambulation today. Plan discharge home today .
== END 2021-02-23 15:35 | disposition home or self-care (01) | DRG 540 ==
LOC: MW.OBCHECK 18:44 → MW.OB 18:45 → MW.OBCHECK 18:45 → MW.OB 18:52 → OBSVTOIN 02-21 13:36 → MW.OB 02-21 18:43
PROVIDERS: ADMIT Obstetrics & Gynecology; ATTEND Obstetrics & Gynecology
PROC: 10D00Z1 Extraction of Products of Conception, Low, Open Approach (ICD-10-PCS; principal; 2021-02-21)
PROC: 3E0R3BZ Introduction of Anesthetic Agent into Spinal Canal, Percutaneous Approach (ICD-10-PCS; 2021-02-21)
PROC: 00HU33Z Insertion of Infusion Device into Spinal Canal, Percutaneous Approach (ICD-10-PCS; 2021-02-21)
DX: O36.5930 Maternal care for other known or suspected poor fetal growth, third trimester, not applicable or unspecified (principal); Z37.0 Single live birth; O76 Abnormality in fetal heart rate and rhythm complicating labor and delivery; Z3A.38 38 weeks gestation of pregnancy; O16.4 Unspecified maternal hypertension, complicating childbirth
CPT/HCPCS: 01961; 01967; 36415; 51702; 59025; 64488; 82803; 85014; 85018; 85027; 86592; 86850; 86900; 86901; A9270-GY; J0690; J1100; J1885; J2270; J2300; J2405; J2590; J2795; J3010; J3490; J7120